=== PATIENT | male | born 1955 | race Two or more races ===

== ENCOUNTER 2024-06-28 08:45 | Emergency (ER) | payer OTHER ==
[~2024-06-28] VITALS: Ht 152.4 cm; Wt 79.4 kg
[2024-06-28] MEDS ORDERED: CIPROFLOXACIN IN 5 % DEXTROSE 400 MG/200 ML PIGGYBAG IV ONE (10:15)
[2024-06-28 10:30] LABS: HEMATOCRIT 40.9 % (39.0-48.0); HEMOGLOBIN 13.5 g/dL (13-16.00); MEAN CELL VOLUME 91.1 fL (80.0-100.00); PLATELET COUNT 290 K/uL (150-450); RED BLOOD COUNT 4.49 M/uL (4.00-6.00); RED CELL DISTRIBUTION WIDTH 14.4 % (11.5-14.5)
[2024-06-28 10:38] LABS: ERYTHROCYTE SEDIMENTATION RATE 33 mm/hr
== END 2024-06-28 12:36 | disposition home or self-care (01) ==
LOC: ER 08:47
PROVIDERS: General Practice
DX: M79.89 Other specified soft tissue disorders (principal); L03.114 Cellulitis of left upper limb; M19.042 Primary osteoarthritis, left hand
CPT/HCPCS: 36415; 73120; 96365; 99283; J0744